=== PATIENT | male | born 1985 | race American Indian/Alaskan Native ===

== ENCOUNTER → 2025-08-15 | Outpatient (CLI) | payer OTHER, MEDICAID, SELFPAY ==
--- NOTE | 2025-08-15 10:07 | XR_ITS ---
Examination: Right knee 4 views Technique a right knee 4 views Date and time: August 15, 2025 1025 hours INDICATIONS: Injury to the knee 2 months ago with persistent knee pain. FINDINGS: Old healed fracture fibular shaft BB density projects adjacent to the proximal fibula Mild to moderate tricompartment osteoarthritis No acute fracture IMPRESSION: Mild to moderate tricompartment osteoarthritis. No acute fracture
== END | disposition home or self-care (01) ==
PROVIDERS: PCP Nurse Practitioner Family; Referring Provider Nurse Practitioner Family; Visit Provider Nurse Practitioner Family
DX: M17.11 Unilateral primary osteoarthritis, right knee (principal); S89.91XS Unspecified injury of right lower leg, sequela; X58.XXXS Exposure to other specified factors, sequela
CPT/HCPCS: 73564